=== PATIENT | female | born 1980 | race African-American/Black ===

== ENCOUNTER 2023-04-28 14:48 | Emergency (ER) | payer OTHER, SELFPAY ==
--- NOTE | ~2023-04-28 | CT_ITS ---
EXAMINATION: CT shoulder LT wo con DATE: 04/28/2023 18:04 INDICATION: Nontraumatic left shoulder pain with limited range of motion TECHNIQUE: High resolution computed tomography (CT) of the left shoulder was performed without intrav enous contrast. Additional sagittal and coronal reconstructions were performed. Automated exposure co ntrol and iterative reconstruction technique were employed. The dose-length product was 444.55 mGy-cm . COMPARISON: None FINDINGS: Bone alignment is normal. No fracture. Mild left swanson clavicular osteoarthritis and minimal glenohu meral osteoarthritis with tiny marginal osteophytes along the humeral head. There are cystic changes at the lesser and greater tuberosities which can be seen with rotator cuff disease. No joint effusion . Surrounding soft tissues are unremarkable. Mosaic attenuation in the left lung likely related to ex piratory phase of imaging with atelectasis. No pathologically enlarged lymphadenopathy at the left ax illa, left hilum or visualized portions of the pneumomediastinum. Heart size is normal. No pericardia l or left pleural effusion. IMPRESSION: 1. Mild left acromioclavicular and minimal glenohumeral osteoarthritis. No acute osseous abnormality. Reviewed, dictated and finalized at location A. AGER IMPRESSION: 1. Mild left acromioclavicular and minimal glenohumeral osteoarthritis. No acut e osseous abnormality.
--- NOTE | ~2023-04-28 | CT_ITS ---
EXAMINATION: CT cervical spine wo con DATE: 04/28/2023 18:04 INDICATION: Neck pain TECHNIQUE: Computed tomography (CT) of the cervical spine was performed without intravenous contrast. Automated exposure control and iterative reconstruction technique were employed. The dose-length pro duct was 353.08 mGy-cm. COMPARISON: None FINDINGS: Mild reversal the normal cervical lordosis. Vertebral body heights are normal. No fracture. Mild oste oarthritis at the atlantoaxial articulation. Moderate disc height loss at C2-C3 and mild disc height loss at C3-C4 through C6-C7 as well as at T2-T3 and T3-T4. Cervical soft tissues are unremarkable. Mi nimal dependent atelectasis in the visualized upper lungs. The following disc levels are specifically discussed: C2-C3: There is minimal bilateral uncovertebral joint osteoarthritis. There is minimal bilateral face t joint osteoarthritis. There is no neural foraminal stenosis. There is no central canal stenosis. C3-C4: There is mild left and minimal right uncovertebral joint osteoarthritis. There is minimal bila teral facet joint osteoarthritis. There is mild left neural foraminal stenosis. There is no central c anal stenosis. C4-C5: Disc is bulging. There is mild bilateral uncovertebral joint osteoarthritis. There is mild shala ateral facet joint osteoarthritis. There is no neural foraminal stenosis. There is mild central canal stenosis. C5-C6: Eccentric to the left posterior disc osteophyte complex. There is mild bilateral uncovertebral joint osteoarthritis. There is mild bilateral facet joint osteoarthritis. There is mild bilateral, l eft greater than right neural foraminal stenosis. There is mild central canal stenosis. C6-C7: Disc is bulging. There is mild bilateral uncovertebral joint osteoarthritis. There is minimal bilateral facet joint osteoarthritis. There is mild right neural foraminal stenosis. There is mild ce ntral canal stenosis. C7-T1: There is minimal bilateral uncovertebral joint osteoarthritis. There is mild right facet joint osteoarthritis. There is no neural foraminal stenosis. There is no central canal stenosis. IMPRESSION: 1. Mild cervical spondylosis. No acute osseous abnormality. Reviewed, dictated and finalized at location A. CTOR OF RADIO SERVICES
--- NOTE | ~2023-04-28 | US_ITS ---
EXAMINATION: US venous doppler [facility] DATE: 04/28/2023 16:30 INDICATION: Severe upper limb pain with prior blood clots TECHNIQUE: Grayscale images without and with compression and Doppler images of the left upper extremi ty veins were obtained. COMPARISON: None. FINDINGS: The left internal jugular vein, subclavian vein, axillary vein, brachial vein, basilic vein and cepha lic vein are patent. IMPRESSION: 1. Patent left upper extremity veins. No evidence of venous thrombosis. Reviewed, dictated and finalized at location A. UTER SYSTEM VALIDATION SPECIALIST
--- NOTE | ~2023-04-28 | CT_ITS ---
EXAMINATION: CTA chest PE protocol DATE: 04/28/2023 18:06 INDICATION: Prior pulmonary embolism, now with inadequate anticoagulation. TECHNIQUE: Computed tomography (CT) pulmonary angiogram of the chest was performed with 100 mL Omnipa que-350 intravenous contrast. Additional 3D reconstructions utilizing coronal maximum intensity proje ction (MIP) were performed. Automated exposure control and iterative reconstruction technique were em ployed. The dose-length product was 514.25 mGy-cm. COMPARISON: None FINDINGS: No pulmonary embolism. Minimal dependent atelectasis in the bilateral lower lobes. No pneumonia, pulm onary edema, pleural effusion or pneumothorax. Calcified left lower lobe nodule consistent with old g ranulomatous disease. Heart size is normal. No pericardial effusion. Thoracic aorta is normal caliber with no dissection. No pathologically enlarged thoracic lymphadenopathy. There are couple diverticul a at the splenic flexure of the colon. Visualized upper abdomen is otherwise unremarkable. Mild to mo derate thoracic spondylosis. IMPRESSION: 1. No pulmonary embolism or other acute cardiopulmonary disease. Reviewed, dictated and finalized at location A. IATRIC THORACIC PHYSICIAN
[2023-04-28 15:12] VITALS: BP 139/92; PULSE 119; RESP 20; TEMP 37.1; O2SAT 99
--- NOTE | 2023-04-28 16:11 | ED.EXTPRO ---
HPI - Extremity Problem General Chief complaint: Extremity Problem,Nontraumatic Stated complaint: LUE pain and swelling Time Seen by Provider: 04/28/23 16:10 History of Present Illness HPI Narrative: 42 YEARS OLD FEMALE CAME TO THE ED BY PRIVATE CAR COMPLAINING OF PAIN AND DECREASED RANGE OF MOTION OF THE LEFT UPPER EXTREMITY STARTED MONTHS AGO BASICALLY 2022. BEEN TO MANY EMERGENCY ROOMS AND WITH NEGATIVE REPEATED VENOUS DOPPLER OF THE ARM. 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 PATIENT IS TELLING ME THAT WAS SEEN AT SHE CAN GO [facility] NUMEROUS OF TIME AND WAS SCHEDULED FOR A LEFT SHOULDER MRI, COULD NOT MAKE IT. Related Data Allergies Allergy/AdvReac Type Severity Reaction Status Date / Time No Known Allergies Allergy Verified 04/28/23 15:17 Review of Systems Review of Systems: All systems reviewed & are unremarkable except as noted in HPI and below Exam Narrative: GENERAL APPEARANCE: WELL-DEVELOPED, WELL-NOURISHED SKIN: NORMAL COLOR HEAD: NORMOCEPHALIC, NONTRAUMATIC EYES: CLEAR CONJUNCTIVA ENT: OROPHARYNX NORMAL, EARS NORMAL, NOSE NORMAL NECK: SUPPLE, NONTENDER CHEST AND RESPIRATORY: AIRWAY PATENT, NO RESPIRATORY DISTRESS, NO ACCESSORY MUSCLE USE HEART: REGULAR RATE/RHYTHM ABDOMEN: SOFT, NONTENDER, NO ORGANOMEGALY, QUIET BOWEL SOUNDS VASCULAR: NORMAL PERIPHERAL PULSES, NORMAL CAPILLARY REFILL. MUSCULOSKELETAL: LEFT UPPER EXTREMITY EXAM SHOWED NO SWELLING, NO BRUISES, NO RASH, NO DEFORMITY, LIMITED RANGE OF MOTION. I WAS ABLE TO ABDUCT LEFT UPPER EXTREMITY UP TO 180 DEGREE, POSITIVE TO DROP SIGN. NEUROLOGIC: ALERT AND ORIENTED ?3, RIM ROLLER OPERATOR IS NORMAL TESTED, NO GROSS MOTOR DEFICIT Course Reevaluation(s) Reevaluation #1: CURRENTLY PATIENT FEELING MUCH BETTER, LOOKS MORE RELAXED AND COMFORTABLE Date: 04/28/23 Time: 19:21 Vital Signs Vital signs: Vital Signs Temperature 37.1 C 04/28/23 15:12 Pulse Rate 119 H 04/28/23 15:12 Respiratory Rate 20 04/28/23 15:12 Blood Pressure 139/92 H 04/28/23 15:12 Pulse Oximetry 99 04/28/23 15:12 Oxygen Delivery Room Air 04/28/23 15:12 Temperature 37.1 C 04/28/23 15:12 Pulse Rate 103 H 04/28/23 18:57 Respiratory Rate 20 04/28/23 18:57 Blood Pressure 142/106 H 04/28/23 18:57 Pulse Oximetry 99 04/28/23 18:57 Oxygen Delivery Room Air 04/28/23 15:12 MDM - Extremity (Nontraumatic) MDM Narrative Medical decision making narrative: PATIENT PRESENTS WITH CHRONIC PAIN AT THE LEFT SHOULDER SINCE 2022, BEEN THROUGH MANY HOSPITALIST, MANY PHYSICIANS, DOES NOT FOLLOW. VITAL SIGN SHOWING HEART RATE OF 119, PATIENT WAS IN PAIN PHYSICAL EXAMINATION SHOWED LIMITED RANGE OF MOTION OF THE LEFT SHOULDER OTHERWISE WITHIN NORMAL LIMITS BLOOD WORKUP TODAY SHOWED NO ACUTE ABNORMALITIES, CT CERVICAL SPINE, CT LEFT SHOULDER, CT HIP PULMONARY TO RULE OUT PE, VENOUS DOPPLER OF LEFT UPPER EXTREMITY SHOWED NO ACUTE ABNORMALITIES. ROTATOR CUFF INJURY/SYNDROME IS MY CONCERN. PATIENT WILL BE DISCHARGED ON DICLOFENAC, FLEXERIL, FOLLOW-UP WITH ORTHOPEDIC FOR POSSIBLE MRI, PHYSICAL THERAPY, CORTISONE INJECTION. Medical Records Attestation: I reviewed the patient's medical records. Lab Data 04/28/23 16:52 04/28/23 16:52 Labs: Lab Results 04/28/23 04/28/23 04/28/23 Range/Units 16:52 17:20 17:39 WBC 11.5 H (4.5-10.0) K/mm3 RBC 4.26 (4.2-5.4) M/mm3 Hgb 13.5 (12.0-15.0) g/dL Hct 42.0 (37.0-47.0) % MCV 98.6
--- NOTE | 2023-04-28 16:33 | ECG_ITS ---
Measurements Intervals [place] Rate: 98 P: -1 ME: 129 QRS: 36 QRSD: 86 T: 18 QT: 336 QTc: 429 Interpretive Statements SINUS RHYTHM NO PREVIOUS ECG AVAILABLE FOR COMPARISON Electronically Signed On 04-29-2023 12:26:44 MANAGER VOICE by Chet Barnett M.D.
[2023-04-28 17:02] LABS: Basophils Percent Auto 0.3 % (0.2-1.2); Eosinophils Absolute Auto 0.1 K/mm3 (0-0.3); Hemoglobin 13.5 g/dL (12.0-15.0); Immature Granulocyte Absolute 0.02 K/mm3 (0.00-0.031); Immature Granulocyte Percent A 0.2 % (0-0.5); Lymphocytes Absolute Auto 4.39 K/mm3 (0.9-3.2); Lymphocytes Percent Auto 38.2 % (18.3-44.2); Mean Corpuscular HGB Conc 32.1 g/dl (32-36); Mean Corpuscular Hemoglobin 31.7 pg (26-34); Mean Corpuscular Volume 98.6 fl (80-100); Mean Platelet Volume 9.4 fl (7.4-10.4); Monocytes Absolute Auto 0.7 K/mm3 (0.1-0.6); Monocytes Percent Auto 5.7 % (2.6-8.5); Neutrophils Absolute Auto 6.3 K/mm3 (1.3-6.7); Neutrophils Percent Auto 54.6 % (45.5-73.1); Platelet Count Result 339 k/mm3 (150-375); Red Blood Count 4.26 M/mm3 (4.2-5.4); Red Cell Distribution Width 13.5 % (11.5-14.5); White Blood Count 11.5 K/mm3 (4.5-10.0)
[2023-04-28 17:14] LABS: Alanine Aminotransferase 20 U/L (6-35); Albumin Level 4.7 g/dL (3.5-5.1); Alkaline Phosphatase 70 U/L (38-126); Anion Gap 10 mmol/L (8-16); Aspartate Amino Transferase 21 U/L (14-36); Bilirubin,Total 0.4 mg/dL (0.2-1.3); Blood Urea Nitrogen 15 mg/dL (7-17); Calcium 9.7 mg/dL (8.4-10.2); Carbon Dioxide 24 mmol/L (22-30); Chloride 108 mmol/L (98-107); Estimated CRCL calculation 113 ml/min; Estimated Glomerular Filt Rate > 60; Glucose 149 mg/dL (65-110); Sodium 142 mmol/L (137-145)
[2023-04-28 17:19] LABS: INR 0.9; Prothrombin Time 12.6 Seconds (11.1-14.7)
[2023-04-28 17:20] LABS: Partial Thromboplastin Time 30.4 SECONDS (22.3-36.8)
[2023-04-28 17:21] LABS: D Dimer 1.16 ug/mL (<0.48)
[2023-04-28] MEDS: ONDANSETRON INJ 4 MG/2 ML VIAL IV PUSH (17:24)
[2023-04-28] MEDS: MORPHINE SULFATE (*CRX) 4 MG/ML INJ IV PUSH ×2 (17:24→19:05)
[2023-04-28 17:25] LABS: Troponin I < 0.012 ng/mL (0.000-0.034)
[2023-04-28 17:30] LABS: Add Urine Microscopic? NO; Appearance Urine Clear (Clear); Bilirubin Urine Negative (Negative); Blood Urine Negative (Negative); Color Urine Yellow (Yellow); Glucose Urine UA Negative (Negative); Ketones Urine Trace mg/dL (Negative); Leukocyte Esterase Ur Negative LEU/UL (Negative); Nitrate Urine Negative (Negative); Protein Urine Negative (Negative); Specific Grav Ur 1.033 (1.001-1.035); Urobilinogen Urine 0.2 mg/dL (<2.0)
[2023-04-28 17:44] LABS: Amphetamine Screen Urine Negative (Negative); Barbiturate Screen Urine Negative (Negative); Benzodiazepines Screen Urine Negative (Negative); Cannabinoid Screen Urine Positive (Negative); Cocaine Screen Urine Negative (Negative); Methadone Screen Urine Negative (Negative); Opiate Screen Urine Negative (Negative); Phencyclidine Screen Urine Negative (Negative)
[2023-04-28 18:08] LABS: Erythrocyte Sedimentation Rate 17 mm/hr (0-20)
[2023-04-28 18:57] VITALS: BP 142/106; PULSE 103; RESP 20; O2SAT 99
== END 2023-04-28 19:22 | disposition home or self-care (01) ==
PROVIDERS: Emergency Provider Emergency Medicine
DX: M75.102 Unspecified rotator cuff tear or rupture of left shoulder, not specified as traumatic (principal); G89.29 Other chronic pain; M47.812 Spondylosis without myelopathy or radiculopathy, cervical region; M19.012 Primary osteoarthritis, left shoulder
CPT/HCPCS: 36415; 71275; 72125; 73200; 80053; 80307; 81003; 81025; 84484; 85025; 85380; 85610; 85652; 85730; 93005; 93971; 96374; 96375; 96376; 99284; J2270; J2405; Q9967